=== PATIENT | male | born 1965 | race Caucasian/White ===

== ENCOUNTER 2020-08-27 15:31 | Emergency (ER) | payer OTHER ==
[~2020-08-27 15:31] MED LIST: BACTROBAN OINT22 GM EXT; BASAGLAR K100 UNIT/1 SC; BENTYL 20MG TAB20 MG PO; CATAPRES 0.1MG0.1 MG PO; CYCLOBENZAPRINE5 MG PO; FLEXERIL 10 MG10 MG PO; GABAPENTIN600 MG PO; GLIPIZIDE5 MG PO; LISINOPRIL20 MG PO; LODINE CAP 300300 MG PO; METFORMIN HCL1000 MG PO; METOPROLOL SUCC50 MG PO; MOBIC15 MG PO; NICOTINE PATCH1 EAC1 TD; NITROGLYCERIN0.4 MG SL; OMEPRAZOLE20 MG PO; OMNICEF 300 MG300 MG PO; PERCOCET 5-3251 EACH PO; PREDNISONE10 MG PO; TIZANIDINE HCL4 MG PO; VENLAFAXINE HCL75 MG PO; ZOFRAN ODT 4 MG4 MG SL
[2020-08-27 16:53] LABS: HEMOGLOBIN 13.3 gm/dl (14.0-17.5); RED BLOOD COUNT 4.51 M/UL (4.20-5.50)
[2020-08-27 17:15] LABS: BUN/CREATININE RATIO 14 (0-10)
[2020-08-27] MEDS ORDERED: METFORMIN HCL1000 MG PO (20:32)
== END 2020-08-27 21:03 | disposition home or self-care (01) ==
LOC: ER1 15:31
PROVIDERS: Physician Assistant
DX: R10.12 Left upper quadrant pain (principal); R10.32 Left lower quadrant pain; R11.0 Nausea; E11.65 Type 2 diabetes mellitus with hyperglycemia; F17.200 Nicotine dependence, unspecified, uncomplicated; Z86.73 Personal history of transient ischemic attack (TIA), and cerebral infarction without residual deficits; Z90.49 Acquired absence of other specified parts of digestive tract
CPT/HCPCS: 80053; 81001; 82009; 82962; 83690; 85025; 96374; 96375; 99284; J2270; J2405; J7030